=== PATIENT | male | born 1940 | race Caucasian/White ===

== ENCOUNTER → 2022-03-11 | Outpatient (CLI) | payer OTHER ==
[~2022-03-11] MED LIST: REGADENOSON 0.4 MG/5 ML PF SYG IVP SCH
== END | disposition home or self-care (01) ==
LOC: SHCH 08:47
PROVIDERS: ATTEND Internal Medicine Cardiovascular Disease
DX: Z01.810 Encounter for preprocedural cardiovascular examination (principal); R07.9 Chest pain, unspecified
CPT/HCPCS: 78452; 96374; 93017; J2785; A9500 ×2

== ENCOUNTER 2022-03-17 12:00 | Inpatient (IN) | payer OTHER ==
[~2022-03-17] VITALS: Ht 177.8 cm; Wt 97.3 kg
[2022-03-21 10:42] LABS: ALBUMIN 3.6 g/dL (3.5-5.0)
[2022-03-21 10:43] LABS: CRP QUANTITATIVE < 2.00 mg/L (0.00-9.0)
[2022-03-21 11:03] LABS: APPEARANCE,URINE CLEAR (CLEAR); BILIRUBIN,URINE NEGATIVE (NEGATIVE); COLOR,URINE YELLOW (YELLOW); GLUCOSE, URINE (UA) NEGATIVE (NEGATIVE); KETONES,URINE NEGATIVE (NEGATIVE); LEUKOCYTE ESTERASE ,URINE NEGATIVE Leu/uL (NEGATIVE); NITRATE,URINE NEGATIVE (NEGATIVE); OCCULT BLOOD,URINE NEGATIVE (NEGATIVE); PROTEIN,URINE NEGATIVE (NEGATIVE); UROBILINOGEN,URINE 0.2 mg/dL (0.2-1.0)
[2022-03-22 11:24] VITALS: BP 150/89
[2022-03-22] MEDS ORDERED: TRIF1TAB PO (12:03)
[2022-03-22] MEDS ORDERED: SILD100T PO (12:03)
[2022-03-22] MEDS ORDERED: HYDR-3830 PO (12:03)
[2022-03-23] VITALS (29 sets, daily range): BP systolic 103–152; BP diastolic 63–84
[2022-03-23] MEDS ORDERED: ROPIVACAINE 0.5% 5MG/ML 30ML IJ ONE ×2 (05:05→06:31)
[2022-03-23] MEDS ORDERED: TRANEXAMIC ACID 1000MG/10ML ONE ×2 (05:32)
[2022-03-23] MEDS: CEFAZOLIN SODIUM 1 GM VIAL IVP SCH ×4 (06:00→22:13)
[2022-03-23] MEDS ORDERED: LACTATED RINGERS 1000ML 1,000 ML IV ONE (06:13)
[2022-03-23] MEDS ORDERED: KETOROLAC 30MG VIAL (30MG/ML) ONE (06:31)
[2022-03-23] MEDS ORDERED: ROCURONIUM 10MG/1ML SYR 10 MG/ML ML ONE (06:53)
[2022-03-23] MEDS ORDERED: PROPOFOL 10 MG/ML 20ML VIAL IV ONE (06:53)
[2022-03-23] MEDS ORDERED: MIDAZOLAM HCL 1 MG/ML 2ML VIAL ONE (06:53)
[2022-03-23] MEDS ORDERED: FENTANYL CITRATE PF 50 MCG/1 ML 5ML AMP IV ONE (06:53)
[2022-03-23] MEDS ORDERED: ONDANSETRON 4MG INJ ONE (07:00)
[2022-03-23] MEDS ORDERED: DEXAMETHASONE SOD PHOSPHATE 10MG/ML 1ML VIAL ONE (07:06)
[2022-03-23] MEDS ORDERED: PHENYLEPHRINE HCL 10 MG/ML 1ML VIAL IV ONE (07:35)
[2022-03-23] MEDS ORDERED: NEOSTIGMINE 5MG/5ML SYR IV ONE (09:41)
[2022-03-23] MEDS ORDERED: GLYCOPYRROLATE 1 MG/5 ML SYRINGE ONE (09:41)
[2022-03-23] MEDS ORDERED: MEPERIDINE-PF 25 MG/ML SYG ONE (09:42)
[2022-03-23] MEDS ORDERED: TRAMADOL HCL 50 MG TABLET PO PRN (10:00)
[2022-03-23] MEDS ORDERED: ONDANSETRON 4MG INJ IVP PRN (10:00)
[2022-03-23] MEDS ORDERED: FERROUS FUMARATE 324 MG TABLET PO PRN (10:00)
[2022-03-23] MEDS ORDERED: LIDOCAINE HCL-MPF 1% 2ML VIAL IV PRN (10:00)
[2022-03-23] MEDS ORDERED: POTASSIUM CHLORIDE 20MEQ/100ML 100 ML IV PRN (10:00)
[2022-03-23] MEDS ORDERED: DiphenhydrAMINE HCL 50 MG/ML VIAL IVP PRN (10:00)
[2022-03-23] MEDS ORDERED: POTASSIUM CHLORIDE 10% ELIXIR 20 MEQ/15 ML UDCUP PO PRN (10:00)
[2022-03-23] MEDS ORDERED: KCL 20 MEQ ERTAB PO PRN (10:00)
[2022-03-23] MEDS ORDERED: HYDROXYZINE 10 MG TABLET PO PRN (13:00)
[2022-03-23] MEDS ORDERED: HYDROCODONE/ACETAMINOPHEN 10/325 MG TAB PO PRN (15:00)
[2022-03-23] MEDS ORDERED: HYDROCODONE/ACETAMINOPHEN 5/325 MG TAB PO PRN (15:00)
[2022-03-23] MEDS: KETOROLAC 15MG/ML VIAL (15MG/ML) IV SCH ×2 (15:55→20:33)
[2022-03-23] MEDS: 0.9%NACL 1000ML 1,000 ML IV SCH ×2 (16:30→20:33)
[2022-03-23] MEDS: GABAPENTIN 100 MG CAPSULE PO SCH (20:33)
[2022-03-23] MEDS: DOCUSATE SODIUM 100 MG CAP PO SCH (21:00)
[2022-03-23] MEDS: CYCLOBENZAPRINE HCL 10 MG TABLET PO PRN (22:14)
[2022-03-24 04:30] VITALS: BP 110/70
[2022-03-24] MEDS: KETOROLAC 15MG/ML VIAL (15MG/ML) IV SCH ×2 (05:14→14:09)
[2022-03-24 05:35] LABS: HEMATOCRIT 36.6 % (42-54); MEAN CORPUSCULAR HEMOGLOBIN 29.5 pg (27.0-33.0); MEAN CORPUSCULAR HGB CONC 32.8 g/dL (32.0-36.0); MEAN CORPUSCULAR VOLUME 89.9 fL (79-99); RED BLOOD CELL COUNT(AUTO) 4.07 MIL/uL (4.50-6.20); RED CELL DISTRIBUTION WIDTH 12.7 % (11.0-15.5); WHITE BLOOD COUNT (AUTO) 9.7 K/uL (4.8-10.8)
[2022-03-24 05:50] LABS: CREATININE 1.3 mg/dL (0.5-1.5)
[2022-03-24] MEDS: CALCIUM CARB 500MG PO PRN ×2 (06:46→20:06)
[2022-03-24 07:30] VITALS: BP 113/66
[2022-03-24] MEDS: TRIFLUOPERAZINE 1 MG PO SCH (09:00)
[2022-03-24] MEDS: POLYETHYLENE GLYCOL 3350 17 GM POWD.PACK PO SCH (09:51)
[2022-03-24] MEDS: ASPIRIN 325MG EC TAB PO SCH (09:51)
[2022-03-24] MEDS: DOCUSATE SODIUM 100 MG CAP PO SCH ×2 (09:51→20:07)
[2022-03-24] MEDS: GABAPENTIN 100 MG CAPSULE PO SCH ×3 (09:51→20:06)
[2022-03-24 11:30] VITALS: BP 121/77
[2022-03-24 16:00] VITALS: BP 134/75
[2022-03-24 20:00] VITALS: BP 133/77
[2022-03-25] VITALS: BP 137/75
[2022-03-25 04:00] VITALS: BP 142/83
[2022-03-25] MEDS: CYCLOBENZAPRINE HCL 10 MG TABLET PO PRN (06:29)
[2022-03-25] MEDS: DOCUSATE SODIUM 100 MG CAP PO SCH (07:47)
[2022-03-25] MEDS: ASPIRIN 325MG EC TAB PO SCH (07:48)
[2022-03-25] MEDS: GABAPENTIN 100 MG CAPSULE PO SCH ×2 (07:48→14:12)
[2022-03-25] MEDS: POLYETHYLENE GLYCOL 3350 17 GM POWD.PACK PO SCH (07:48)
[2022-03-25 08:00] VITALS: BP 149/90
[2022-03-25] MEDS: TRIFLUOPERAZINE 1 MG PO SCH (09:00)
[2022-03-25 11:26] VITALS: BP 143/74
[2022-03-25] MEDS ORDERED: CYCL-309 PO (14:36)
[2022-03-25] MEDS ORDERED: ASPI-891 PO (14:36)
[2022-03-25] MEDS ORDERED: DOCU-116 PO (14:36)
[2022-03-25] MEDS ORDERED: GABA100C PO (14:36)
[2022-03-25] MEDS ORDERED: HYDR-4060 PO (14:36)
[2022-03-25] MEDS ORDERED: TRAM50TA4 PO (14:36)
[2022-03-26] MEDS ORDERED: BISACODYL 10 MG SUPP.RECT RC PRN (10:00)
== END 2022-03-25 17:01 | disposition home health service (06) | DRG 470 ==
LOC: DAHIP 03-23 05:47 → 4DH 03-23 11:00
PROVIDERS: ADMIT Student in an Organized Health Care Education/Training Program; ATTEND Student in an Organized Health Care Education/Training Program
PROC: 3E0T3BZ Introduction of Anesthetic Agent into Peripheral Nerves and Plexi, Percutaneous Approach (ICD-10-PCS; 2022-03-23)
PROC: 3E0T33Z Introduction of Anti-inflammatory into Peripheral Nerves and Plexi, Percutaneous Approach (ICD-10-PCS; 2022-03-23)
PROC: 0SRD0J9 Replacement of Left Knee Joint with Synthetic Substitute, Cemented, Open Approach (ICD-10-PCS; principal; 2022-03-23 07:09)
DX: M17.12 Unilateral primary osteoarthritis, left knee (principal); D62 Acute posthemorrhagic anemia; Z20.822 Contact with and (suspected) exposure to COVID-19; Z88.2 Allergy status to sulfonamides
CPT/HCPCS: 36415; 73560; 80048; 81003; 82040; 84134; 85027; 86140; 87088; 87426; 87641; 97039; G0378; J0690; J1100; J1200; J1885; J2175; J2250; J2370; J2405; J2704; J2710; J2795; J3010; J3490; J7120